=== PATIENT | female | born 2000 | race Hispanic/Latino ===

== ENCOUNTER 2018-09-03 19:59 | Emergency (ER) | payer BC ==
[2018-09-03] MEDS ORDERED: ACETAMINOPHEN 500 MG TAB ONE (20:22)
[2018-09-03] MEDS ORDERED: IBUPROFEN 400 MG TAB ONE (20:28)
--- NOTE | 2018-09-03 21:09 | EDPHYS ---
Physician Documentation [facility] Name: Eli Ramirez Age: 18 yrs Sex: Female : 2000 Arrival Date: 09/03/2018 Time: 20:02 Bed 23 Private MD: Lakhwinder Núñez B ED Physician Miah Brito HPI: 09/03 20:16 This 18 yrs old Female presents to ER via Ambulatory with complaints of Flu rn Symptoms. 20:16 The patient or guardian reports cough, flu symptoms. Onset: The symptoms/episode rn began/occurred 2 day(s) ago. Severity of symptoms: At their worst the symptoms were mild, in the emergency department the symptoms are unchanged. Modifying factors: The symptoms are alleviated by nothing, the symptoms are aggravated by nothing. The patient has not experienced similar symptoms in the past. The patient has not recently seen a physician. Reports fever, chills, cough, runny nose, fatigue, muscle aches, thinks has the flu. Son recently seen here, tested positive for flu and strep. No sob.. 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 - Social history:: Smoking status: Patient/guardian denies using tobacco. - Ebola Screening: : No symptoms or risks identified at this time. - Family history:: not pertinent. - Hospitalizations: : No recent hospitalization is reported. ROS: 20:16 Constitutional: + fever and chills Eyes: Negative for injury, pain, redness, and psychology intern, ENT: + runny nose, no sore throat Neck: Negative for injury, pain, and swelling, Cardiovascular: Negative for chest pain, palpitations, and edema, Respiratory: + cough, neg for sob. Abdomen/GI: Negative for abdominal pain, nausea, vomiting, diarrhea, and constipation, MS/Extremity: Negative for injury and deformity, Skin: Negative for injury, rash, and discoloration, Neuro: Negative for headache, numbness, tingling, and seizure. Exam: 20:16 Constitutional: This is a well developed, well nourished patient who is awake, alert, rn and in no acute distress. Ambulatory to room without difficulty. Head/Face: Normocephalic, atraumatic. Eyes: Pupils equal round and reactive to light, extra-ocular motions intact. Lids and lashes normal. Conjunctiva and sclera are non-icteric and not injected. Cornea within normal limits. Periorbital areas with no swelling, redness, or edema. ENT: MMM, mild taonsillar hypertrophy, no exudate, no stridor Neck: NOn-tender cervical LAD, no meningismus Cardiovascular: tachycardic, regular, no murmur Respiratory: Lungs have equal breath sounds bilaterally, clear to auscultation. No increased work of breathing, no retractions or nasal flaring. Skin: Warm, dry Neuro: Awake and alert, GCS 15, oriented to person, place, time, and situation. Cranial nerves II-XII grossly intact. Motor strength 5/5 in all extremities. Sensory grossly intact. Cerebellar exam normal. Normal gait. Vital Signs: 20:09 BP 122 / 80; Pulse 128; Resp 18; Temp 102.8; Pulse Ox 100% on R/A; mg2 21:16 BP 120 / 78; Pulse 90; Resp 18; Temp 99.6(O); Pulse Ox 100% on R/A; Pain 0/10; mg2 MDM: 20:07 Patient medically screened. rn 21:07 Differential Diagnosis: Influenza. Data reviewed: vital signs, nurses notes, lab test rn result(s), and as a result, I will discharge patient. Counseling: I had a detailed discussion with the patient and/or guardian regarding: the historical points, exam findings, and any diagnostic results supporting the discharge/admit diagnosis, lab results, the need for outpatient follow up, to return to the emergency department if symptoms worsen or persist or if there are any questions or concerns that arise at home. Special discussion: I discussed with the patient/guardian in detail that at this point there is no indication for admission to the hospital. It is understood, however, that if the symptoms persist or worsen the patient needs to return immediately for re-evaluation. 09/03 20:14 Order name: Flu; Complete Time: 21: rn 09/03 20:14 Order name: Strep; Complete Time: 21: rn 09/03 20:50 Order name: Throat Culture EDMS Administered Medications: 20:26 Drug: Motrin 800 mg Route: PO; mg2 21:11 Follow up: Response: No adverse reaction mg2 21:11 Drug: Tamiflu 75 mg Route: PO; mg2 21:12 Follow up: Response: No adverse reaction; Medication administered at discharge. mg2 Disposition: 09/03/18 21:08 Discharged to Home. Impression: Influenza due to other identified influenza virus. - Condition is Stable. - Discharge Instructions: Influenza, Adult. - Prescriptions for Tamiflu 75 mg Oral Capsule - take 1 capsule by ORAL route every 12 hours for 5 days; 10 capsule. - Medication Reconciliation Form, Thank You Letter, Antibiotic Education, Prescription Opioid Use form. - Follow up: Private Physician; When: As needed; Reason: Recheck today's complaints, Re-evaluation by your physician. - Problem is new. - Symptoms have improved. Signatures: Dispatcher [employer] EDMS Miah Brito MD MD rn Krenek, Amber, RN RN ak1 Umer Teran RN RN mg2 Corrections: (The following items were deleted from the chart) 21:17 21:08 09/03/2018 21:08 Discharged to Home. Impression: Influenza due to other mg2 identified influenza virus. Condition is Stable. Forms are Medication Reconciliation Form, Thank You Letter, Antibiotic Education, Prescription Opioid Use. Follow up: Private Physician; When: As needed; Reason: Recheck today's complaints, Re-evaluation by your physician. Problem is new. Symptoms have improved. rn
--- NOTE | 2018-09-03 21:09 | ER ---
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 pt stated 102 temp at [facility] for 2 days, body aches, nausea, diarrhea. Transition of care: patient was not received from another setting of care. Onset of symptoms was September 01, 2018. Risk Assessment: Do you want to hurt yourself or someone else? Patient reports no desire to harm self or others. Care prior to arrival: nightquill. 20:09 Method Of Arrival: Ambulatory ak 20:09 Acuity: BRIDGETTE 4 ak 20:30 Initial Sepsis Screen: Does the patient meet any 2 criteria? No. Patient's initial mg2 sepsis screen is negative. Does the patient have a suspected source of infection? No. Patient's initial sepsis screen is negative. Triage Assessment: 20:10 General: Appears in no apparent distress. Behavior is calm, cooperative. 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 - Social history:: Smoking status: Patient/guardian denies using tobacco. - Ebola Screening: : No symptoms or risks identified at this time. - Family history:: not pertinent. - Hospitalizations: : No recent hospitalization is reported. Screenin:30 Abuse screen: Denies threats or abuse. Denies injuries from another. Nutritional mg2 screening: No deficits noted. Tuberculosis screening: No symptoms or risk factors identified. Fall Risk None identified. Assessment: 20:30 General: Appears in no apparent distress. comfortable, Behavior is calm, cooperative. mg2 Pain: Complains of pain in throat Pain does not radiate. Pain currently is 2 out of 10 on a pain scale. Quality of pain is described as aching, Pain began gradually, 2-3 days ago. Is intermittent. Neuro: Level of Consciousness is awake, alert, obeys commands, Oriented to person, place, time, situation. Cardiovascular: Capillary refill < 3 seconds Patient's skin is warm and dry. Respiratory: Reports cough that is non-productive, Airway is patent Respiratory effort is even, unlabored, Respiratory pattern is regular, symmetrical. GI: No signs and/or symptoms were reported involving the gastrointestinal system. : No signs and/or symptoms were reported regarding the genitourinary system. EENT: Throat is reddened has enlarged tonsils bilaterally. Derm: Skin is intact, is healthy with good turgor, Skin is pink, warm \T\ dry. normal. Musculoskeletal: Circulation, motion, and sensation intact. Capillary refill < 3 seconds. Vital Signs: 20:09 BP 122 / 80; Pulse 128; Resp 18; Temp 102.8; Pulse Ox 100% on R/A; mg2 21:16 BP 120 / 78; Pulse 90; Resp 18; Temp 99.6(O); Pulse Ox 100% on R/A; Pain 0/10; mg2 ED Course: 20:02 Patient arrived in ED. am2 20:02 Lakhwinder Núñez MD is Private Physician. am2 20:07 Miah Brito MD is Attending Physician. rn 20:08 Umer Teran, RAYMOND is Primary Nurse. mg2 20:10 Triage completed. ak1 20:10 Arm band placed on Patient placed in an exam room, on a stretcher, Patient notified of ak1 wait time. 20:30 No provider procedures requiring assistance completed. Flu and/or RSV swab sent to lab. mg2 Strep swab sent to lab. Patient did not have IV access during this emergency room visit. 20:32 Patient has correct armband on for positive identification. Door closed. mg2 Administered Medications: 20:26 Drug: Motrin 800 mg Route: PO; mg2 21:11 Follow up: Response: No adverse reaction mg2 21:11 Drug: Tamiflu 75 mg Route: PO; mg2 21:12 Follow up: Response: No adverse reaction; Medication administered at discharge. mg2 Outcome: 21:08 Discharge ordered by MD. rn 21:17 Discharged to home ambulatory, with family. mg2 21:17 Condition: stable 21:17 Discharge instructions given to patient, family, Instructed on discharge instructions, follow up and referral plans. medication usage, Demonstrated understanding of instructions, follow-up care, medications, Prescriptions given X 1. 21:17 Patient left the ED. mg2 Signatures: Miah Brito MD MD rn Krenek, Amber RN RN ak1 Ayanna Farooq am2 Umer Teran RN RN mg2
[2018-09-03] MEDS ORDERED: OSELTAMIVIR 75 MG CAP ONE (21:19)
[2018-09-03 22:47] VITALS: O2SAT 100
[2018-09-03 22:48] VITALS: BP 120/78; TEMP 99.6
== END 2018-09-03 21:17 | disposition home or self-care (01) ==
LOC: ER 19:59
DX: J10.1 Influenza due to other identified influenza virus with other respiratory manifestations (principal)
CPT/HCPCS: 87070; 87081; 87804; 99283

== ENCOUNTER 2018-09-30 14:49 | Emergency (ER) | payer BC ==
--- OUTSIDE RECORDS SUMMARY | 2018-09-30 14:51 | XMS REPORT ---
:2000 [facility] Address [address] [place] [address] Dr. Rouse [address] [place] [id number] Care Team Providers Name Role Phone Unavailable Unavailable Unavailable Problems This patient has no known problems. Allergies, Adverse Reactions, Alerts This patient has no known allergies or adverse reactions. Medications This patient has no known medications.
[2018-09-30 15:13] LABS: Urine Blood 2+ (NEG); Urine Glucose NEGATIVE (NEG); Urine Protein NEGATIVE (NEG)
[2018-09-30 15:27] LABS: Urine Bacteria 20-50 /HPF (<20); Urine Culture Reflex Order REFLEXED; Urine Mucus 1+ /HPF (NONE SEEN)
[2018-09-30 15:37] LABS: Absolute Monocytes 0.5 K/uL (0.1-1.3); Absolute Neutrophil 4.9 K/uL (1.8-8.0); Basophils % 0.4 % (0-1.3); Hematocrit 37.1 % (36.0-45.0); Lymphocytes % 26.9 % (15.3-44.8); MPV 9.2 fL (7.6-11.3); Monocytes % 6.8 % (3.3-12.3); RBC Red Blood Cell Count 4.16 M/uL (3.86-4.86)
[2018-09-30 16:15] LABS: BUN Blood Urea Nitrogen 9 mg/dL (7-18); Bicarbonate 26 mmol/L (21-32); Glucose Level 91 mg/dL (74-106); HCG, Quantitative 59635 mIU/mL (1-3); Potassium 3.5 mmol/L (3.5-5.1); Sodium Level 141 mmol/L (136-145)
--- NOTE | 2018-09-30 17:24 | RAD REPORT ---
EXAM DESCRIPTION: US - Transvaginal OB - 09/30/2018 4:57 pm CLINICAL HISTORY: with abdominal pain and vaginal bleeding COMPARISON: None. FINDINGS: The uterus is retroverted measuring 9 x 6 x 6 centimeters. A gestational sac is present w ithin the endometrium. Within this is a yolk sac and pole with a crown-rump length 1.2 centimet ers. Cardiac activity 152 beats per minute. Small subchorionic bleed Ovaries are normal in size and echotexture. A 2.2 centimeter hemorrhagic left ovarian is . Right and left adnexal unremarkable No significant free fluid is seen. IMPRESSION: Single live intrauterine with an estimated gestational age 7 weeks 1 day DONTE 05/18/2019 Small subchorionic bleed
--- NOTE | 2018-09-30 17:33 | ER ---
Nurse's Notes [facility] Name: Eli Ramirez Age: 18 yrs Sex: Female : 2000 Arrival Date: 09/30/2018 Time: 14:52 Bed 28 Private MD: Diagnosis: Threatened Presentation: 09/30 14:53 Presenting complaint: Patient states: bright red vaginal spotting x 1 week. c/o abd sv cramping, SOB. Transition of care: patient was not received from another setting of care. Onset of symptoms was September 23, 2018. Care prior to arrival: None. 14:53 Method Of Arrival: Ambulatory sv 14:53 Acuity: BRIDGETTE 3 sv 15:46 Risk Assessment: Do you want to hurt yourself or someone else? Patient reports no rv desire to harm self or others. Initial Sepsis Screen: Does the patient meet any 2 criteria? No. Patient's initial sepsis screen is negative. Does the patient have a suspected source of infection? No. Patient's initial sepsis screen is negative. Triage Assessment: 14:57 General: Appears in no apparent distress. uncomfortable, well developed, Behavior is sv calm, cooperative, appropriate for age. Pain: Denies pain. Neuro: Level of Consciousness is awake, alert, obeys commands, Oriented to person, place, time, situation, Gait is steady. Respiratory: Reports shortness of breath Airway is patent Respiratory effort is even, unlabored, Respiratory pattern is regular, symmetrical. : Reports vaginal bleeding that is bright red, spotty. 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 - Social history:: Smoking status: unknown. - Ebola Screening: : Patient negative for fever greater than or equal to 101.5 degrees Fahrenheit, and additional compatible Ebola Virus Disease symptoms Patient denies exposure to infectious person Patient denies travel to an Ebola-affected area in the 21 days before illness onset. Screenin:46 Abuse screen: Denies threats or abuse. Denies injuries from another. Nutritional rv screening: No deficits noted. Tuberculosis screening: No symptoms or risk factors identified. Fall Risk None identified. Assessment: 15:45 General: Appears in no apparent distress. comfortable, Behavior is calm, cooperative. rv Pain: Complains of pain in abdomen. Neuro: Level of Consciousness is awake, alert, obeys commands, Oriented to person, place, time, situation. Cardiovascular: Capillary refill < 3 seconds. Respiratory: Airway is patent. GI: No signs and/or symptoms were reported involving the gastrointestinal system. :. : Reports vaginal bleeding that is spotty. EENT: No signs and/or symptoms were reported regarding the EENT system. Derm: Skin is intact. Musculoskeletal: No signs and/or symptoms reported regarding the musculoskeletal system. 15:48 Obstetrical Assessment: General assessment: awake and alert, respirations even and rv unlabored, Patient reports abdominal cramping. 16:59 Reassessment: Patient appears in no apparent distress at this time. Patient and/or rv family updated on plan of care and expected duration. Pain level reassessed. Patient is alert, oriented x 3, equal unlabored respirations, skin warm/dry/pink. Patient denies pain at this time. Patient states feeling better. Vital Signs: 14:54 BP 116 / 68; Pulse 82; Resp 16; Temp 98.2; Pulse Ox 100% ; Weight 63.96 kg; Height 5 sv ft. 3 in. (160.02 cm); Pain 0/10; 16:58 BP 115 / 75 RA Supine; Pulse 81; Resp 18 S; Pulse Ox 99% on R/A; rv 17:52 BP 110 / 72 RA Supine; Pulse 78; Resp 17 S; Pulse Ox 99% on R/A; rv 14:54 Body Mass Index 24.98 (63.96 kg, 160.02 cm) sv Vitals: 15:48 Heart Tones inaudible thru doppler. rv ED Course: 14:52 Patient arrived in ED. mr 14:53 Triage completed. sv 14:54 Arm band placed on. sv 14:55 Hood Teresa PA is PHCP. cp 14:55 Hood Meyer MD is Attending Physician. cp 14:57 Daniel Botello RN is Primary Nurse. rv 15:00 Inserted saline lock: 20 gauge in left antecubital area, using aseptic technique. Blood rv collected. 15:47 Patient has correct armband on for positive identification. Bed in low position. Call rv light in reach. Side rails up X 1. Adult w/ patient. Pulse ox on. NIBP on. 16:56 Ultrasound completed. Patient tolerated well. Notified DOWEL POINTER/MELVI cordoba. sg3 16:57 US Transvaginal Ob In Process Unspecified. EDMS 17:52 No provider procedures requiring assistance completed. IV discontinued, intact, rv bleeding controlled, No redness/swelling at site. Pressure dressing applied. Administered Medications: No medications were administered Point of Care Testing: Urine : 15:46 hCG Reading: Positive; Control Reading: Positive; rv Outcome: 17:32 Discharge ordered by MD. cp 17:53 Discharged to home ambulatory. rv 17:53 Condition: good 17:53 Discharge instructions given to patient, Instructed on discharge instructions, follow up and referral plans. Demonstrated understanding of instructions, follow-up care, medications, Prescriptions given X 1. 17:53 Patient left the ED. rv Signatures: Dispatcher [employer] EDGaby Alvarez, RN RN Cait Nolan Corey, PA PA cp Godinez, Sarah sg3 Daniel Botello RN RN rv Corrections: (The following items were deleted from the chart) 14:54 14:53 Presenting complaint: Patient states: bright red vaginal spotting x 1 week. sv Denies abd cramping. c/o SOB. sv 17:53 17:52 Patient did not have IV access during this emergency room visit. rv rv
--- NOTE | 2018-09-30 17:33 | EDPHYS ---
Physician Documentation [facility] Name: Eli Ramirez Age: 18 yrs Sex: Female : 2000 Arrival Date: 09/30/2018 Time: 14:52 Bed 28 Private MD: ED Physician Hood Meyer HPI: 09/30 15:04 This 18 yrs old Female presents to ER via Ambulatory with complaints of cp Vaginal Bleeding, + Preg <12wks. 15:05 The patient presents to the emergency department with vaginal bleeding, described as cp spotting. 15:05 course: care: private OB physician, Leakage of Fluid: none cp appreciated. Associated signs and symptoms: Pertinent positives: abdominal cramping, Pertinent negatives: dysuria, ruptured membranes. The patient has not experienced similar symptoms in the past. 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 - Social history:: Smoking status: unknown. - Ebola Screening: : Patient negative for fever greater than or equal to 101.5 degrees Fahrenheit, and additional compatible Ebola Virus Disease symptoms Patient denies exposure to infectious person Patient denies travel to an Ebola-affected area in the 21 days before illness onset. ROS: 15:10 Constitutional: Negative for body aches, chills, fever, poor PO intake. cp 15:10 Eyes: Negative for injury, pain, redness, and discharge. cp 15:10 ENT: Negative for drainage from ear(s), ear pain, sore throat, difficulty swallowing, difficulty handling secretions. 15:10 Cardiovascular: Negative for chest pain, palpitations. 15:10 Respiratory: Negative for cough, wheezing. 15:10 Abdomen/GI: Positive for abdominal cramps, Negative for nausea, vomiting, and diarrhea, black/tarry stool, rectal bleeding. 15:10 : Positive for vaginal bleeding, Negative for urinary symptoms. 15:10 Skin: Negative for cellulitis, rash. 15:10 Neuro: Negative for altered mental status, headache, weakness. 15:10 All other systems are negative. Exam: 15:20 Constitutional: The patient appears in no acute distress, alert, awake, non-toxic, well cp developed, well nourished. 15:20 Head/Face: Normocephalic, atraumatic. cp 15:20 Eyes: Periorbital structures: appear normal, Conjunctiva: normal, no exudate, no injection, Sclera: no appreciated abnormality, Lids and lashes: appear normal, bilaterally. 15:20 ENT: External ear(s): are unremarkable, Nose: is normal, Mouth: Lips: moist, Oral mucosa: pink and intact, moist, Posterior pharynx: is normal, airway is patent, no erythema, no exudate. 15:20 Chest/axilla: Inspection: normal, Palpation: is normal, no crepitus, no tenderness. 15:20 Cardiovascular: Rate: normal, Rhythm: regular. 15:20 Respiratory: the patient does not display signs of respiratory distress, Respirations: normal, no use of accessory muscles, no retractions, no splinting, no tachypnea, labored breathing, is not present, Breath sounds: are clear throughout, no decreased breath sounds, no stridor, no wheezing. 15:20 Abdomen/GI: Inspection: abdomen appears normal, Bowel sounds: active, all quadrants, Palpation: soft, in all quadrants, nontender, in all quadrants, rebound tenderness, is not appreciated, voluntary guarding, is not appreciated, involuntary guarding, is not appreciated. 15:20 Back: pain, is absent, ROM is normal. 15:20 Skin: no rash present. Vital Signs: 14:54 BP 116 / 68; Pulse 82; Resp 16; Temp 98.2; Pulse Ox 100% ; Weight 63.96 kg; Height 5 sv ft. 3 in. (160.02 cm); Pain 0/10; 16:58 BP 115 / 75 RA Supine; Pulse 81; Resp 18 S; Pulse Ox 99% on R/A; rv 17:52 BP 110 / 72 RA Supine; Pulse 78; Resp 17 S; Pulse Ox 99% on R/A; rv 14:54 Body Mass Index 24.98 (63.96 kg, 160.02 cm) sv MDM: 14:56 Patient medically screened. adan 16:51 ED course: received verbal report of US: \T\ week and 2 day IUP, fhr of 166, small cp subchorionic bleed. 17:32 Data reviewed: vital signs, nurses notes, lab test result(s), radiologic studies, cp ultrasound. 17:32 Differential diagnosis: STD, threatened Ab, inevitable Ab, complete Ab, retained Ab, cp ectopic . Counseling: I had a detailed discussion with the patient and/or guardian regarding: the historical points, exam findings, and any diagnostic results supporting the discharge/admit diagnosis, lab results, radiology results, the need for outpatient follow up, an OB/Gyne specialist, to return to the emergency department if symptoms worsen or persist or if there are any questions or concerns that arise at home. 09/30 14:58 Order name: Quantitative Hcg; Complete Time: 17:09 09/30 17:09 Interpretation: Reviewed. 09/30 14:58 Order name: Abo/rh Typing; Complete Time: 17:09 09/30 17:09 Interpretation: Reviewed. 09/30 14:58 Order name: Basic Metabolic Panel; Complete Time: 17:09 cp 09/30 14:58 Order name: CBC with Diff; Complete Time: 15:55 cp 09/30 15:04 Order name: Urine Microscopic Only; Complete Time: 15:55 cp 09/30 15:07 Order name: Urine Dipstick--Ancillary (enter results); Complete Time: 15:55 ms 09/30 14:58 Order name: Urine Test (obtain specimen); Complete Time: 15:44 cp 09/30 14:58 Order name: IV Saline Lock; Complete Time: 15:44 cp 09/30 14:58 Order name: Labs collected and sent; Complete Time: 15:44 cp 09/30 14:58 Order name: NPO; Complete Time: 15:44 cp 09/30 14:58 Order name: Urine Dipstick-Ancillary (obtain specimen); Complete Time: 15:44 cp 09/30 15:29 Order name: Urine Culture EDTX 09/30 15:56 Order name: US Transvaginal Ob; Complete Time: 17:31 cp Administered Medications: No medications were administered Point of Care Testing: Urine : 15:46 hCG Reading: Positive; Control Reading: Positive; rv Disposition: 10/01 07:59 Co-signature as Attending Physician, Hood Meyer MD I agree with the assessment and adan plan of care. Disposition: 09/30/18 17:32 Discharged to Home. Impression: Threatened . - Condition is Stable. - Discharge Instructions: Threatened Miscarriage, Vaginal Bleeding During , First Trimester, Pelvic Rest, Form - Excuse from Work, School, or Physical Activity. - Prescriptions for Vitamin 27- 0.8 mg Oral Tablet - take 1 tablet by ORAL route once daily; 60 tablet. - Medication Reconciliation Form, Thank You Letter, Antibiotic Education, Prescription Opioid Use form. - Follow up: Private Physician; When: primary TRADEMARK PARALEGAL; Reason: Recheck today's complaints, next 2-3 days. - Problem is new. - Symptoms have improved. Signatures: Dispatcher [employer] Gaby Rosado RN RN Hood Pace MD MD cha Page, Corey, PA PA Daniel Hopper, RN RN rv Corrections: (The following items were deleted from the chart) 09/30 17:53 17:32 09/30/2018 17:32 Discharged to Home. Impression: Threatened . Condition rv is Stable. Forms are Medication Reconciliation Form, Thank You Letter, Antibiotic Education, Prescription Opioid Use. Follow up: Private Physician; When: primary TRADEMARK PARALEGAL; Reason: Recheck today's complaints, next 2-3 days. Problem is new. Symptoms have improved. cp
[2018-09-30 18:07] VITALS: TEMP 98.2
[2018-09-30 18:08] VITALS: O2SAT 99
[2018-09-30 18:10] VITALS: BP 110/72
== END 2018-09-30 17:53 | disposition home or self-care (01) ==
LOC: ER 14:49
DX: O20.0 Threatened abortion (principal); Z3A.01 Less than 8 weeks gestation of pregnancy
CPT/HCPCS: 36415; 76817; 80048; 81003; 81015; 84702; 85025; 86900; 86901; 87086; 87088; 99284

== ENCOUNTER 2019-07-14 01:43 | Emergency (ER) | payer BC ==
[2019-07-14] MEDS ORDERED: ONDANSETRON 4 MG/2 ML VIAL ONE (02:25)
[2019-07-14] MEDS ORDERED: MORPHINE 4 MG/ML SYR ONE (02:25)
[2019-07-14 02:28] LABS: Absolute Lymphocytes (CBC) 2.5 K/uL (0.7-4.9); Basophils % 0.4 % (0-1.3); Hematocrit 37.5 % (36.0-45.0); Lymphocytes % 20.6 % (15.3-44.8); MPV 8.7 fL (7.6-11.3); RBC Red Blood Cell Count 4.35 M/uL (3.86-4.86)
[2019-07-14 02:44] LABS: ALT/SGPT 26 U/L (12-78); AST/SGOT 20 U/L (15-37); Albumin 3.9 g/dL (3.4-5.0); Alkaline Phosphatase 90 U/L (45-117); BUN Blood Urea Nitrogen 15 mg/dL (7-18); Bicarbonate 29 mmol/L (21-32); Bilirubin Direct 0.1 mg/dL (0-0.2); Bilirubin Total 0.3 mg/dL (0.2-1.0); Glucose Level 85 mg/dL (74-106); Lipase 153 U/L (73-393); Potassium 3.5 mmol/L (3.5-5.1); Protein, Total 7.6 g/dL (6.4-8.2); Sodium Level 141 mmol/L (136-145)
--- NOTE | 2019-07-14 03:50 | ER ---
Nurse's Notes [facility] Name: Eli Ramirez Age: 19 yrs Sex: Female : 2000 Arrival Date: 07/14/2019 Time: 01:44 Bed 14 Private MD: Diagnosis: Pelvic and perineal pain Presentation: 07/14 01:50 Presenting complaint: Patient states: I got an IUD last Monday tonight I started to rr5 have chills and severe pain. I can't feel the string right now. Transition of care: patient was not received from another setting of care. Onset of symptoms was July 14, 2019. Risk Assessment: Do you want to hurt yourself or someone else? Patient reports no desire to harm self or others. Initial Sepsis Screen: Does the patient meet any 2 criteria? No. Patient's initial sepsis screen is negative. Does the patient have a suspected source of infection? No. Patient's initial sepsis screen is negative. Care prior to arrival: None. 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 - Coronavirus screen:: The patient has NOT traveled to [place], [place], or [place] in the past 14 days. - Social history:: Smoking status: Patient denies any tobacco usage or history of. Patient/guardian denies using alcohol, street drugs. - Ebola Screening: : Patient negative for fever greater than or equal to 101.5 degrees Fahrenheit, and additional compatible Ebola Virus Disease symptoms Patient denies exposure to infectious person Patient denies travel to an Ebola-affected area in the 21 days before illness onset. Screenin:00 Abuse screen: Denies threats or abuse. Denies injuries from another. Nutritional rr5 screening: No deficits noted. Tuberculosis screening: No symptoms or risk factors identified. Fall Risk None identified. Total Salvador Fall Scale indicates No Risk (0-24 pts). Assessment: 01:50 General: Appears in no apparent distress. uncomfortable, ill, Behavior is calm, rr5 cooperative, anxious, Reports chills for 12-24 hours. Pain: Complains of pain in pelvis Pain does not radiate. Pain currently is 10 out of 10 on a pain scale. Quality of pain is described as aching, Pain began gradually, Is intermittent. Neuro: Level of Consciousness is awake, alert, obeys commands, Oriented to person, place, time, situation, Appropriate for age. Cardiovascular: Capillary refill < 3 seconds Patient's skin is warm and dry. Respiratory: Airway is patent Respiratory effort is even, unlabored, Respiratory pattern is regular, symmetrical. GI: No signs and/or symptoms were reported involving the gastrointestinal system. : Reports pain in left in lower back Pain is 10 out of 10 on a pain scale. has an IUD Denies burning with urination. EENT: No signs and/or symptoms were reported regarding the EENT system. 01:50 Derm: Skin is intact, is healthy with good turgor, Skin temperature is warm. rr5 Musculoskeletal: Circulation, motion, and sensation intact. Capillary refill < 3 seconds. 02:20 Reassessment: Patient appears in no apparent distress at this time. Patient and/or rr5 family updated on plan of care and expected duration. Pain level reassessed. Patient is alert, oriented x 3, equal unlabored respirations, skin warm/dry/pink. 03:10 Reassessment: Patient appears in no apparent distress at this time. Patient is alert, rr5 oriented x 3, equal unlabored respirations, skin warm/dry/pink. Patient states feeling better. Patient states symptoms have improved. 04:00 Reassessment: Patient appears in no apparent distress at this time. Patient is alert, rr5 oriented x 3, equal unlabored respirations, skin warm/dry/pink. ED provider at bedside. discharge instruction given and explained without complaints made. Patient states feeling better. Patient states symptoms have improved. 04:00 Pain: Pain currently is 3 out of 10 on a pain scale. rr5 Vital Signs: 01:50 BP 123 / 89; Pulse 88; Resp 17; Temp 99; Pulse Ox 99% ; Weight 64.41 kg; Height 5 ft. 3 rr5 in. (160.02 cm); Pain 10/10; 02:30 BP 115 / 74; Pulse 110; Resp 16; Pulse Ox 98% ; Pain 5/10; rr5 03:00 BP 128 / 100; Pulse 93; Resp 16; Pulse Ox 100% ; Pain 5/10; rr5 04:00 BP 106 / 59; Pulse 95; Resp 19; Temp 99.2; Pulse Ox 100% ; Pain 3/10; rr5 01:50 Body Mass Index 25.15 (64.41 kg, 160.02 cm) rr5 ED Course: 01:44 Patient arrived in ED. cl3 01:50 Amador Rowe, CIVIL LABORATORY TECHNICIAN is PHCP. pm1 01:50 Jamar Mills MD is Attending Physician. pm1 01:50 Martin Baron, RAYMOND is Primary Nurse. rr5 01:57 Triage completed. rr5 02:00 Arm band placed on right wrist. rr5 02:00 Assist provider with pelvic exam: Set up pelvic tray. Performed by Amador Rowe CIVIL LABORATORY TECHNICIAN rr5 Patient tolerated well. assisted by Zarfo. 02:01 Patient has correct armband on for positive identification. Placed in gown. Bed in low rr5 position. Call light in reach. Pulse ox on. NIBP on. Warm blanket given. 02:20 Urine collected: straight cath specimen, clear, blood tinged, Amount Returned: 200mL. rr5 Straight cath inserted, using sterile technique, 16 Fr. Specimen obtained. by Zarfo Patient tolerated well. 02:30 Inserted saline lock: 20 gauge in right antecubital area, using aseptic technique. rr5 Blood collected. 02:44 Radiology exam delayed due to lab results not completed at this time. (BUN/Creatinine). kw1 03:29 CT Abd/Pelvis - IV Contrast Only In Process Unspecified. EDMS 04:09 IV discontinued, intact, bleeding controlled, No redness/swelling at site. Pressure rr5 dressing applied. Administered Medications: 02:20 Drug: Zofran 4 mg Route: IVP; Site: right antecubital; rr5 03:20 Follow up: Response: No adverse reaction rr5 02:22 Drug: morphine 4 mg {Note: rass 0.} Route: IVP; Site: right antecubital; rr5 03:30 Follow up: Response: No adverse reaction; Pain is decreased; RASS: Alert and Calm (0) rr5 Outcome: 03:50 Discharge ordered by . tw4 04:09 Discharged to home ambulatory, with family. rr5 04:09 Condition: stable 04:09 Discharge instructions given to patient, Instructed on discharge instructions, follow up and referral plans. medication usage, Demonstrated understanding of instructions, follow-up care, medications, Prescriptions given X 2. 04:11 Patient left the ED. rr5 Signatures: Dispatcher [employer] EDMS Amador Rowe, TREE CIVIL LABORATORY TECHNICIAN pm1 Janett Bonilla 1 Jamar Mills MD MD tw4 Martin Baron RN RN rr5 Chele Dinero cl3
--- NOTE | 2019-07-14 03:50 | EDPHYS ---
Physician Documentation [facility] Name: Eli Ramirez Age: 19 yrs Sex: Female : 2000 Arrival Date: 07/14/2019 Time: 01:44 Bed 14 Private MD: ED Physician Jamar Mills HPI: 07/14 02:10 This 19 yrs old Female presents to ER via Ambulatory with complaints of Left pm1 Flank Pain. 02:10 The patient complains of pain in the left low back. The pain does not radiate. Onset: pm1 The symptoms/episode began/occurred today. Modifying factors: The symptoms are alleviated by nothing. the symptoms are aggravated by patient believes that she might have an issue with her IUD that was placed on Monday. Associated signs and symptoms: Pertinent positives: Chills, Pertinent negatives: diarrhea, nausea, vomiting. Severity of pain: in the emergency department the pain is actually worse. The patient has not experienced similar symptoms in the past. Patient was concerned that she could not feel the strings of her IUD. Patient with IUD placement on Monday without any issues. Vaginal bleeding onset 2 days ago. [facility] yesterday without any difficulty. Today she woke up with the sensation of left flank pain and chills . 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 - Coronavirus screen:: The patient has NOT traveled to [place], [place], or [place] in the past 14 days. - Social history:: Smoking status: Patient denies any tobacco usage or history of. Patient/guardian denies using alcohol, street drugs. - Ebola Screening: : Patient negative for fever greater than or equal to 101.5 degrees Fahrenheit, and additional compatible Ebola Virus Disease symptoms Patient denies exposure to infectious person Patient denies travel to an Ebola-affected area in the 21 days before illness onset. ROS: 02:13 Eyes: Negative for injury, pain, redness, and discharge, ENT: Negative for injury, pm1 pain, and discharge, Neck: Negative for injury, pain, and swelling, Cardiovascular: Negative for chest pain, palpitations, and edema, Respiratory: Negative for shortness of breath, cough, wheezing, and pleuritic chest pain, Abdomen/GI: Negative for abdominal pain, nausea, vomiting, diarrhea, and constipation. 02:13 MS/Extremity: Negative for injury and deformity, Skin: Negative for injury, rash, and discoloration, Neuro: Negative for headache, weakness, numbness, tingling, and seizure. 02:13 Constitutional: Positive for chills, Negative for fever. 02:13 Back: Positive for flank pain, on the left. 02:13 : Positive for flank pain, vaginal bleeding, Negative for urinary symptoms. Exam: 02:13 Constitutional: This is a well developed, well nourished patient who is awake, alert, pm1 and in no acute distress. Head/Face: Normocephalic, atraumatic. Neck: Trachea midline, no thyromegaly or masses palpated, and no cervical lymphadenopathy. Supple, full range of motion without nuchal rigidity, or vertebral point tenderness. No Meningismus. Chest/axilla: Normal chest wall appearance and motion. Nontender with no deformity. No lesions are appreciated. Cardiovascular: Regular rate and rhythm with a normal S1 and S2. No gallops, murmurs, or rubs. Normal PMI, no JVD. No pulse deficits. Respiratory: Lungs have equal breath sounds bilaterally, clear to auscultation and percussion. No rales, rhonchi or wheezes noted. No increased work of breathing, no retractions or nasal flaring. 02:13 Skin: Warm, dry with normal turgor. Normal color with no rashes, no lesions, and no evidence of cellulitis. MS/ Extremity: Pulses equal, no cyanosis. Neurovascular intact. Full, normal range of motion. 02:13 Abdomen/GI: Inspection: abdomen appears normal, Bowel sounds: normal, Palpation: abdomen is soft and non-tender, in all quadrants, mass, is not appreciated, rebound tenderness, is not appreciated. 02:13 Back: pain, that is moderate, of the left low back. 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 02:13 Neuro: Orientation: is normal, Motor: is normal, moves all fours. Vital Signs: 01:50 BP 123 / 89; Pulse 88; Resp 17; Temp 99; Pulse Ox 99% ; Weight 64.41 kg; Height 5 ft. 3 rr5 in. (160.02 cm); Pain 10/10; 02:30 BP 115 / 74; Pulse 110; Resp 16; Pulse Ox 98% ; Pain 5/10; rr5 03:00 BP 128 / 100; Pulse 93; Resp 16; Pulse Ox 100% ; Pain 5/10; rr5 04:00 BP 106 / 59; Pulse 95; Resp 19; Temp 99.2; Pulse Ox 100% ; Pain 3/10; rr5 01:50 Body Mass Index 25.15 (64.41 kg, 160.02 cm) rr5 MDM: 01:52 Patient medically screened. pm1 02:17 Data reviewed: vital signs. Data interpreted: Pulse oximetry: on room air is 99 %. pm1 Interpretation: normal. 02:59 Differential diagnosis: nephrolithiasis, pyelonephritis, UTI, Complications with IUD. pm1 0202 02:06 Order name: Basic Metabolic Panel; Complete Time: 02:59 pm1 07/14 02:06 Order name: CBC with Diff; Complete Time: 02:31 pm1 07/14 02:06 Order name: Creatinine for Radiology; Complete Time: 02:43 pm1 07/14 02:06 Order name: Hepatic Function; Complete Time: 02:59 pm1 07/14 02:06 Order name: Lipase; Complete Time: 02:59 pm1 07/14 02:29 Order name: Urine Microscopic Only; Complete Time: 15:19 pm1 07/14 02:06 Order name: IV Saline Lock; Complete Time: 02:33 pm1 07/14 02:06 Order name: Labs collected and sent; Complete Time: 02:33 pm1 07/14 02:06 Order name: Urine Dipstick-Ancillary (obtain specimen); Complete Time: 02:33 pm1 07/14 02:06 Order name: Urine Test (obtain specimen); Complete Time: 02:33 pm1 07/14 02:06 Order name: CT Abd/Pelvis - IV Contrast Only pm1 07/14 02:34 Order name: Straight Cath - Urine; Complete Time: 02:34 rr5 Administered Medications: 02:20 Drug: Zofran 4 mg Route: IVP; Site: right antecubital; rr5 03:20 Follow up: Response: No adverse reaction rr5 02:22 Drug: morphine 4 mg {Note: rass 0.} Route: IVP; Site: right antecubital; rr5 03:30 Follow up: Response: No adverse reaction; Pain is decreased; RASS: Alert and Calm (0) rr5 Disposition: 07/14/19 03:50 Discharged to Home. Impression: Pelvic and perineal pain. - Condition is Stable. - Discharge Instructions: Pelvic Pain, Female, [id number]. - Medication Reconciliation Form, Thank You Letter, Antibiotic Education, Prescription Opioid Use form. - Follow up: Private Physician; When: Upon discharge from the Emergency Department; Reason: If symptoms return, Recheck today's complaints, Continuance of care. - Problem is new. - Symptoms have improved. Addendum: 07/15/2019 07:47 Co-signature as Attending Physician, Jamar Mills MD I agree with the assessment and t w4 plan of care. Signatures: Dispatcher [employer] EDMS Amador Rowe, RIGHT OF WAY CUTTER RIGHT OF WAY CUTTER pm1 Jamar Mills MD MD tw4 Martin Baron, RN RN rr5 Corrections: (The following items were deleted from the chart) 07/14 04:11 03:50 07/14/2019 03:50 Discharged to Home. Impression: Pelvic and perineal pain. rr5 Condition is Stable. Forms are Medication Reconciliation Form, Thank You Letter, Antibiotic Education, Prescription Opioid Use. Follow up: Private Physician; When: Upon discharge from the Emergency Department; Reason: If symptoms return, Recheck today's complaints, Continuance of care. Problem is new. Symptoms have improved. tw4
[2019-07-14 03:53] LABS: Urine Bacteria <20 /HPF (<20); Urine Culture Reflex Order NOT NEEDED; Urine Mucus 1+ /HPF (NONE SEEN)
[2019-07-14 04:45] VITALS: O2SAT 100
[2019-07-14 04:47] VITALS: BP 106/59; TEMP 99.2
--- NOTE | 2019-07-15 12:23 | RAD REPORT ---
EXAM DESCRIPTION: CT - Abdomen Pelvis W Contrast - 07/14/2019 5:21 am CLINICAL HISTORY: The patient is 19 years old and is Female; FLANK PAIN TECHNIQUE: Axial computed tomography images of the abdomen and pelvis with intravenous contrast. S agittal and coronal reformatted images were created and reviewed. This CT exam was performed using one or more of the following dose reduction techniques: automated exposure control, adjustment of t he mA and/or kV according to patient size, and/or use of iterative reconstruction technique. COMPARISON: No relevant prior studies available. FINDINGS: LUNG BASES: Unremarkable. No mass. No consolidation. ABDOMEN: LIVER: Unremarkable. No mass. GALLBLADDER AND BILE DUCTS: No calcified stones. No ductal dilation. PANCREAS: No ductal dilation. No mass. SPLEEN: Unremarkable. ADRENALS: Unremarkable. No mass. KIDNEYS AND URETERS: Unremarkable. The kidneys enhance symmetrically. No obstructing renal or ur eteral calculus is seen. No hydronephrosis or hydroureter. No perinephric fluid or stranding. STOMACH AND BOWEL: The stomach is distended with food contents and air. The small bowel is relat ively normal in caliber. Stool is present throughout colon. There is no mucosal thickening or evidenc e of bowel obstruction. PELVIS: APPENDIX: The appendix is normal in caliber without surrounding inflammation. BLADDER: Unremarkable. No mass. REPRODUCTIVE: An IUD is in place. The uterus and ovaries are otherwise unremarkable. ABDOMEN and PELVIS: INTRAPERITONEAL SPACE: Unremarkable. No free air. No significant fluid collection. BONES/JOINTS: No acute fracture. SOFT TISSUES: The soft tissues are normal. VASCULATURE: Prominent gonadal vessels are present within the pelvis. No abdominal aortic aneu rysm. LYMPH NODES: Unremarkable. No enlarged lymph nodes. IMPRESSION: 1. No acute findings on this contrasted CT of the abdomen and pelvis to explain the pa tient's symptoms. 2. Prominent gonadal vessels which may be seen with pelvic congestion syndrome. Electronically signed by: Lauryn Weber MD 07/14/2019 3:37 AM TELLER Due to temporary technical issues with the PACS/Fluency reporting system, reports are being signed by the in house radiologist as a courtesy to ensure prompt reporting. The interpreting radiologist is f ully responsible for the content of the report.
== END 2019-07-14 04:11 | disposition home or self-care (01) ==
LOC: ER 01:43
DX: R10.2 Pelvic and perineal pain (principal)
CPT/HCPCS: 85025; 80048; 36415; 80076; 81015; 83690; 74177; 51702; 96375; 96374; 99284; Q9967; J2405